=== PATIENT | female | born 1970 ===

== ENCOUNTER 2016-09-11 12:29 | Day surgery (SDC) | payer OTHER ==
--- NOTE | 2016-09-10 08:56 | HISTORY AND PHYSICAL ---
ADMITTED: 09/11/2016 HISTORY OF PRESENT ILLNESS: The patient is a 46-year-old female with a chief complaint of a chronic painful right foot and unstable right ankle. She reports that, due to her pain in the foot, she rolls it and then her ankle gives out. She states it has been persistent for quite some time, and she has exhausted conservative care. MEDICAL/SURGICAL HISTORY: History of hypertension and kidney stones. Surgical history: None listed. PRIMARY CARE PROVIDER: [facility]. MEDICATIONS: 1. Lisinopril 10 mg 1 by mouth daily. ALLERGIES: 1. REPORTS AN ALLERGY TO SULFA. SOCIAL HISTORY: She is , former smoker, does not drink. FAMILY HISTORY: Hypertension, diabetes and blood clots. REVIEW OF SYSTEMS: A 10-point review of systems is noncontributory to the chief complaint. PHYSICAL EXAMINATION: GENERAL: The patient is alert, oriented x3. HEAD AND NECK: PERRLA. Normocephalic. HEART: Regular rate and rhythm. Regular S1 and S2. LUNGS: Clear to auscultation. No wheezing, rhonchi, or rales. ABDOMEN: Soft, tender, nondistended. No palpable masses. NEUROLOGIC: Deep tendon reflexes. Negative Babinski. LOWER EXTREMITY: Vascular: DP and PT pulses are palpable. Subpapillary venous plexus capillary refill within normal limits. Normal sensation. The right forefoot, there is crepitus within the first MTP with a moderate decreased range of motion. Ankle is tender along the course of the anterior talofibular ligament, with a positive anterior drawer sign, with 4-6 mm of anterior displacement. Stance reveals collapse of medial column, valgus heel. LAB/IMAGING: Imaging taken on OrthoScan weightbearing platform revealed increased intermetatarsal angle of about 12 degrees, sesamoid deviation. Ankle mortise is asymmetric, in an athletic position, with noted instability with range of motion in a rotation at the syndesmosis. IMPRESSION: 1. Hallux valgus deformity, moderate right first metatarsophalangeal joint 2. Chronic ankle instability PLAN: The patient has consented for procedures consisting of: 1. First distal metatarsal osteotomy, right, with rigid internal fixation. 2. Ankle arthroscopy with debridement. 3. Ankle stabilization. There are no contraindications to surgery at this time. Surgery is scheduled on outpatient basis at [facility] on 09/11/2016.
[~2016-09-11] VITALS: Ht 157.5 cm; Wt 86.6 kg
[~2016-09-11 12:29] MED LIST: COZAAR25 MG PO
[2016-09-11] MEDS ORDERED: ZOFRAN4 MG PO (16:03)
[2016-09-11] MEDS ORDERED: PERCOCET1 TA4 PO (16:03)
--- NOTE | 2016-09-11 16:04 | Provider's Discharge Care Plan ---
Problem, Goal, Plan Problem List 1. Acquired hallux valgus of right foot Goals: Improve function Instructions: Follow up as directed
--- NOTE | 2016-09-11 16:04 | Provider's Discharge Care Plan ---
Problem, Goal, Plan Problem List 1. Acquired hallux valgus of right foot Goals: Improve function Instructions: Follow up as directed
--- NOTE | 2016-09-11 16:26 | DIAGNOSTIC IMAGING REPORT ---
PROCEDURE: XR FOOT 3 VIEWS - RIGHT INDICATION: POST-OP- IN PACU TECHNIQUE: Three views. COMPARISON: None. FINDINGS: Status post bunionectomy. Two screws are in the first metatarsal. Alignment is anatomic. IMPRESSION: 1. Status post bunionectomy.
[2016-09-11 17:05] VITALS: BP 124/73
[2016-09-11 17:20] VITALS: BP 135/79
[2016-09-11 17:35] VITALS: BP 138/81
[2016-09-11 17:39] VITALS: BP 124/73
[2016-09-11 17:50] VITALS: BP 149/94
[2016-09-11 18:05] VITALS: BP 145/84
--- NOTE | 2016-09-11 20:05 | OPERATIVE REPORT ---
DATE OF SURGERY: 09/11/2016 SURGEON: Clif Lowry DPM PREOPERATIVE DIAGNOSES: 1. Hallux valgus deformity, right foot 2. Chronic ankle instability, right ankle POSTOPERATIVE DIAGNOSES: 1. Hallux valgus deformity, right 2. Chronic right ankle instability 3. Osteochondral lesion PROCEDURES PERFORMED: 1. Ankle arthroscopy with debridement 2. Lateral ankle stabilization with Arthrex internal brace 3. First metatarsal, distal metatarsal osteotomy ANESTHESIA: General. HEMOSTASIS: Achieved by mid-thigh tourniquet inflated to 300 mmHg pressure. TOURNIQUET TIME: Total tourniquet time 95 minutes. MATERIALS: 3-0 and 4-0 Polysorb and 4-0 Surgipro and two Arthrex 2.5 headless compression screws, one 18 mm in length, the other 20 mm and one Arthrex internal brace kit with #2 FiberTape. INJECTABLES: 20 mL of 0.5% bupivacaine plain. COMPLICATIONS: None. CONDITION: The patient tolerated procedure and anesthesia well. INDICATIONS: The patient is a 46-year-old female who has presented with a chronic painful right ankle. She has had bimalleolar ankle fractures in the mid-90s, which have resulted in a chronic unstable ankle with crepitus with movement and instability. She also has very painful bunion. She has exhausted conservative care, would like to proceed with surgical intervention. SURGICAL TECHNIQUE: The patient brought in to the operating room, placed on the table in a supine position and general anesthetic was administered. A pneumatic tourniquet was then placed above the right knee. Right lower extremity was prepped and draped in the normal sterile fashion. An OR time-out was carried out by identification, proper limb, consent form verified and confirmed, as well as preoperative antibiotic being identified as being delivered and confirmed of 1 g cefazolin. Esmarch bandage was then utilized to exsanguinate the limb, tourniquet was inflated. Attention was then directed to procedure #1. Ankle arthroscopy with debridement: The leg was placed in a leg hawk and then an Arthrex ankle distractor was placed. A medial incision was made just medial to the tibialis anterior tendon. Initially, the portal was identified with an 18 gauge into the joint, 11-blade made the corresponding incision, dissection was carried out with a portal dissection with a blunt curved hemostat. The camera was then inserted. Upon entry there was noted significant hemorrhagic synovitis on the anterior medial gutter. Advancing the camera in more posteriorly, there was a significant osteochondral lesion noted on the posterior tibial section with significant denudation noted. A corresponding lateral incision was then made on the anterior aspect of the lateral gutter. A 3.5 small joint shaver was then placed. The hemorrhagic synovium, as well as the remaining sections of denuded cartilage off of the tibia was resected down to a smooth surface. There were small little osteochondral deficits in the talar dome as well. There are resected in toto. The camera and shaver were then transposed and the additional fragments of cartilage were then shaved down and debrided. Approximately 3000 L of lactated Ringer's were placed through the joint. The shaver and camera were removed. Portals were reapproximated with 4-0 Surgipro. Attention was then directed to procedure #2. Lateral ankle stabilization with Arthrex internal brace: At this time, an anterior linear incision was made on the distal fibula extending just inferior to the fibula. It was deepened by sharp and blunt dissection. A moistened sponge was then utilized to remove any adipose and allowing access to the periosteum. The periosteum was incised with the Bancroft elevator off the distal anterior fibula and reflected. A guidewire was then driven obliquely at 45 degrees towards the lateral gutter, verified under fluoroscopy for proper placement. It was drilled with a 2.7 drill, tapped accordingly, and a 2.7 SwiveLock with FiberWire was then inserted. Dissection was then carried anteriorly following the course of the remnants of the anterior talofibular ligament as it inserts into the talar neck region. At this point, a guidewire was then driven obliquely and oriented from anterolateral the posteromedial into the body of the talus, verified under fluoroscopy for proper placement. It was over-drilled with 2.7 drill then drilled with a solid 3.4 drill and then tapped with a 4.7 tap. A 4.75 SwiveLock and FiberTape were inserted with the foot held in neutral position with the FiberWire overlying the anterior talofibular ligament. The area was flushed. Capsule and periosteum were reapproximated in a [id number] fashion with 3-0 Polysorb, subcutaneous with 4-0 Polysorb and skin edge reapproximated with 4-0 Surgipro. Attention then was directed to procedure #3. Distal metatarsal osteotomy: At this time, a dorsal medial incision was made on the dorsum of the first MTP extending just proximal to the surgical neck, extending across the joint. The capsule was then incised. The collateral ligament was released medially. Hypertrophied medial eminence was resected minimally. At the surgical neck a Chevron osteotomy was carried out with the apex being distal, base being proximal at 60 degrees, a [id number] osteotomy. Capital fragment was then translated in both the sagittal and transverse plane. Following standard AO techniques, the osteotomy was stably fixated with two 2.5 headless compression screws, one 18 mm, the other 20, oriented from a dorsal proximal to a plantar distal position. The first metatarsal medially and dorsally was then resected and contoured to a smooth edge. The area was flushed. Capsule and periosteum were reapproximated with 3-0 Polysorb, subcutaneous with 4-0 and skin edges were then reapproximated in running fashion with 4-0 Surgipro. The areas were locally anesthetized with the aforementioned local anesthetic. A light compressive dressing was applied. Tourniquet was released with good reactive hyperemia. There is noted to be significant bleeding through the Gregory bandage; therefore, the bandage was then reinforced prior to leaving the operating room where she was seen in the PACU in stable condition with no additional bleeding. Prognosis is guarded. She will be discharged home in stable condition.
== END 2016-09-11 19:00 | disposition home or self-care (01) ==
LOC: SDC SRH 12:29 → SCU SRH 12:32 → SDC SRH 13:30 → CC SRH 17:32 → SDC SRH 19:00
PROVIDERS: Podiatrist
PROC: 0QSN04Z Reposition Right Metatarsal with Internal Fixation Device, Open Approach (ICD-10-PCS; principal; 2016-09-11 13:30)
PROC: 0MQQ0ZZ Repair Right Ankle Bursa and Ligament, Open Approach (ICD-10-PCS; principal; 2016-09-11 13:30)
PROC: 0QBL4ZZ Excision of Right Tarsal, Percutaneous Endoscopic Approach (ICD-10-PCS; principal; 2016-09-11 13:30)
PROC: 0QBN0ZZ Excision of Right Metatarsal, Open Approach (ICD-10-PCS; principal; 2016-09-11 13:30)
PROC: 0SBF4ZZ Excision of Right Ankle Joint, Percutaneous Endoscopic Approach (ICD-10-PCS; principal; 2016-09-11 13:30)
DX: M20.11 Hallux valgus (acquired), right foot (principal); M25.371 Other instability, right ankle; M93.871 Other specified osteochondropathies, right ankle and foot; I10 Essential (primary) hypertension